=== PATIENT | male | born 1950 | race Caucasian/White ===

== ENCOUNTER → 2016-12-19 | Outpatient (CLI) | payer MEDICARE, BC ==
[~2016-12-19] MED LIST: ASPIRIN81 M2 PO; CENTRUM SILVER PO; FISH OIL 1,4001 EACH PO; LIPITOR20 MG PO; LISINOPRIL-HCTZ1 T15 PO; METOPROLOL SUCC50 MG PO; NIACIN1000 MG PO
--- NOTE | ~2016-12-19 | MR17 ---
[facility] A Service of [facility] & [facility] RADIOLOGY TEXT RESULTS PATIENT: CORINA RAYGOZA LOCATION: [facility] : 48 UNIT #: [id number] AGE: [address]: Garcia Delgadillo MD SEX: M ORDER DR: [id number] [place] [id number] MR#: [id number] Acc #: [id number] NAME: CORINA RAYGOZA : 1950 SEX: M STUDY DATE/TIME: 12/19/2016 14:10 UNIT: [facility] ROOM: STUDY DESCRIPTION: MR Brain WWo Contrast Attending Physician: Garcia Delgadillo M.D. Referring Physician: Garcia Delgadillo M.D. Ordering Physician: Garcia Delgadillo M.D. Primary Care Physician: Garcia Delgadillo M.D. MRI CENTER REPORT This report is preliminary unless electronic signature is present. EXAM MRI brain with without HISTORY Stroke syndrome. No known injury or surgery. Patient complains of 2 episodes of sharp headaches in the past week. The first film is associated with syncope, followed by vomiting and the second 1 was associated with dizziness, nausea and visual changes. Patient has a history of hypertension but no history of cancer. TECHNIQUE MRI of the brain was performed prior to and following intravenous administration of 20 mL of MultiHance. COMPARISON STUDIES There is a previous study from 2004. FINDINGS There is no evidence for a recent ischemic insult on the diffusion series. Midline structures are unremarkable. The major intracranial flow voids are maintained. There is mild prominence of perivascular spaces in general. There is no extraaxial fluid collection. Mild mucosal thickening in the paranasal sinuses. Mastoid air cells are clear. No sinus air-fluid level. Relatively mild white matter signal abnormality, most apparent in the periventricular white matter. It is likely due to small vessel disease given history and it is within the range expected for age group. There is no MRI evidence for intracranial hemorrhage. There is no intracranial mass effect. Following contrast administration, there is no pathologic intracranial enhancement. There is no intracranial mass lesion suspected. [facility] A Service of [facility] & [facility] RADIOLOGY TEXT RESULTS PATIENT: CORINA RAYGOZA LOCATION: [facility] : 48 UNIT #: [id number] AGE: [address]: Garcia Delgadillo MD SEX: M ORDER DR: IMPRESSION 1. No evidence for a recent ischemic insult on the diffusion series. 2. Minor probable sequelae of small vessel disease, essentially within the range of normal for age group. Otherwise, essentially normal MRI of the brain with and without contrast. Findings called by myself to the requesting physician following the dictation. STAT * RESULT Dictated by... Casandra Ding M.D. THIS IS AN ELECTRONICALLY VERIFIED REPORT Casandra Ding M.D. at 12/19/2016 4:51 PM SAC/pcl TD: 12/19/2016 15:01 JOB #: [id number] MRI CENTER REPORT Page 1 of 1
[2016-12-19 15:56] LABS: POC - GFR >60.0 mL/min (>60)
== END | disposition home or self-care (01) ==
LOC: SMRI 13:30
PROVIDERS: Family Medicine
DX: I63.9 Cerebral infarction, unspecified (principal)
CPT/HCPCS: 70553; 82565; A9581